=== PATIENT | female | born 2000 | race Caucasian/White ===

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

== ENCOUNTER 2019-07-27 03:16 | Emergency (ER) | payer OTHER ==
--- NOTE | 2019-07-27 04:03 | PDOC ---
History of Present Illness - General Stated Complaint: TINGLING LEGS AND HANDS Time Seen by Provider: 07/27/19 04:01 - History of Present Illness Initial Comments: 07/27/19 04:02 HPI: 18 y/o F with hx of BL knee surgery and migraines presenting with tingling in hands and feet since 11pm. Feet tingling self resolved. She gets these symptoms occasionally but only lasts 10min; today lasted longer than ever. She reports dropping things from her hands since the tingling started. She reprots a headache this morning that resolved after medications and has not recurred. Denied fever, chills, neck pain, chest pain, SOB, abd pain, n/v, change in vision, syncope. Of note, she reports concern for kidney failure due to all her meds causing tingling. PMHx: as noted above ROS: as noted SHx: Denies tobacco use; no alcohol use; no rec drugs Allergies: NKDA ROS: GENERAL/CONSTITUTIONAL: No fever or chills HEAD, EYES, EARS, NOSE AND THROAT: No change in vision. No ear pain or discharge. No sore throat. CARDIOVASCULAR: No chest pain or shortness of breath RESPIRATORY: No cough, wheezing, or hemoptysis. GASTROINTESTINAL: No nausea, vomiting, diarrhea or constipation. GENITOURINARY: No dysuria, frequency, or change in urination. MUSCULOSKELETAL: No joint or muscle swelling or pain. No neck or back pain. SKIN: No rash NEUROLOGIC: No headache, vertigo, loss of consciousness; +sensation changes. ENDOCRINE: No increased thirst. No abnormal weight change HEMATOLOGIC/LYMPHATIC: No anemia, easy bleeding, or history of blood clots. ALLERGIC/IMMUNOLOGIC: No hives or skin allergy. PE: GENERAL: Awake, alert, and fully oriented, no acute distress HEAD: No signs of trauma, normocephalic, atraumatic EYES: EOMI, sclera anicteric, conjunctiva clear ENT: Auricles normal inspection, hearing grossly normal, nares patent, oropharynx clear without exudates. Moist mucosa NECK: Normal ROM, no lymphadenopathy LUNGS: No increased work of breathing, symmetrical chest rise, clear to auscultation bilaterally, no wheezes, crackles or rhonchi HEART: Regular rate and rhythm, normal S1 and S2, no murmur, peripheral pulses 2 + and equal bilaterally. ABDOMEN: Soft, nondistended, nontender, normoactive bowel sounds. No guarding, no rebound. No masses. No CVAT MUSCULOSKELETAL: Normal inspection, FROM NEUROLOGICAL: Cranial nerves II through XII grossly intact. Normal speech, normal gait, no focal sensorimotor deficits SKIN: Warm, Dry, normal turgor, no rashes or lesions noted Past History - Past Medical History Allergies/Adverse Reactions: Allergies Allergy/AdvReac Type Severity Reaction Status Date / Time No Known Allergies Allergy Verified 02/20/18 08:12 Home Medications: Ambulatory Orders Acetaminophen [Tylenol] 650 mg PO QID PRN 02/20/18 Cyclobenzaprine HCl [Flexeril -] 10 mg PO TID PRN #21 tablet 02/20/18 Ibuprofen 400 mg PO TID PRN #21 tablet 02/20/18 COPD: No - Immunization History Immunization Up to Date: Yes - Psycho Social/Smoking Cessation Hx Smoking History: Never smoked Have you smoked in the past 12 months: No Hx Alcohol Use: No Drug/Substance Use Hx: No Substance Use Type: None ED Treatment Course - LABORATORY CBC & Chemistry Diagram: 07/27/19 05:30 07/27/19 05:30 Medical Decision Making - Medical Decision Making 07/27/19 05:19 18 y/o F with hx of BL knee surgery and migraines presenting with tingling in hands and feet since 11pm; feet tingling self resolved. VSS, AF. PE unremarkable. Patient would like kidneys checked -cbc, cmp, preg 07/27/19 06:23 labs wnl preg negative discussed with patient results and answered all questions; recommending followup with pcp; no other concerns at this time Discharge - Discharge Information Problems reviewed: Yes Clinical Impression/Diagnosis: Tingling Condition: Stable Disposition: HOME - Follow up/Referral Referrals: Cuate Savage MD [Primary Care Provider] - - Patient Discharge Instructions Patient Printed Discharge Instructions: DI for Numbness/tingling Additional Instructions: Additional Instructions: Please return to the emergency department with any new or worsening symptoms or concerns. Please follow up with your primary care physician within 1 week for further evaluation - Post Discharge Activity
[2019-07-27 04:07] VITALS: BP 128/95; PULSE 85; TEMP 97.9; BMI 23.8
--- NOTE | 2019-07-27 04:14 | PDOC ---
Attending Attestation - Resident Resident Name: Sabino Hernandez - ED Attending Attestation I have performed the following: I have examined & evaluated the patient, The case was reviewed & discussed with the resident, I agree w/resident's findings & plan - HPI HPI: 07/31/19 21:46 see resident hpi - Physicial Exam PE: 07/31/19 21:46 agree with resident exam - Medical Decision Making 07/31/19 21:47 18-year-old female with history of frequent headaches, accompanied by tingling to the hands and feet Headache now resolved Patient concerned about her kidney function She was given results from today that her creatinine was within normal limits She is neuro intact and feeling much better Will DC with recommended outpatient follow-up
[2019-07-27 05:42] LABS: BASO % 1.2 % (0-2.0); EOS % 1.6 % (0-4.5); HEMATOCRIT 40.4 % (32.4-45.2); HEMOGLOBIN 13.9 GM/dL (10.7-15.3); LYMPH % 37.9 % (8-40); MCH 29.6 pg (25.7-33.7); MCHC 34.3 g/dl (32.0-36.0); MEAN CELL VOLUME 86.2 fl (80-96); MEAN PLT VOLUME 6.5 fl (7.5-11.1); MONO % 7.8 % (3.8-10.2); NEUT % 51.5 % (42.8-82.8); PLATELET COUNT 380 K/MM3 (134-434); RBC 4.69 M/mm3 (3.60-5.2); RDW 13.3 % (11.6-15.6); WHITE BLOOD COUNT 9.4 K/mm3 (4.0-10.0)
[2019-07-27 06:18] LABS: ALBUMIN 4.1 g/dl (3.4-5.0); BILIRUBIN,TOTAL 0.5 mg/dL (0.2-1); BLOOD UREA NITROGEN 11.2 mg/dL (7-18); CALCIUM 9.3 mg/dL (8.5-10.1); CREATININE 0.7 mg/dL (0.55-1.3); POTASSIUM 3.7 mmol/L (3.5-5.1); TOT PROT 8.4 g/dl (6.4-8.2)
== END 2019-07-27 06:38 | disposition home or self-care (01) ==
LOC: JER 03:16
DX: R20.2 Paresthesia of skin (principal); Z86.69 Personal history of other diseases of the nervous system and sense organs; Z98.890 Other specified postprocedural states
CPT/HCPCS: 36415; 80053; 84703; 85025; 99283-25

== ENCOUNTER 2020-11-01 09:14 | Emergency (ER) | payer OTHER ==
[2020-11-01 09:18] VITALS: TEMP 98.1; BMI 26.5
[2020-11-01 10:30] VITALS: BP 127/67; PULSE 68
[2020-11-02 09:07] LABS: SARS-CoV-2 NAA Not Detected (Not Detected)
== END 2020-11-01 10:34 | disposition home or self-care (01) ==
LOC: FER 09:14
DX: K11.7 Disturbances of salivary secretion (principal)
CPT/HCPCS: 84703; 87880; 99284-25; C9803; U0003; U0005

== ENCOUNTER 2022-01-13 09:34 | Emergency (ER) | payer OTHER ==
[2022-01-13] MEDS ORDERED: ACETAMINOPHEN 325 MG TABLET (FP) PO ONE (09:53)
[2022-01-13 09:59] VITALS: BP 138/77; PULSE 92; TEMP 97.8; BMI 32.0
[2022-01-13] MEDS ORDERED: ACETAMINOPHEN 325 MG TABLET (FP) ONE (10:02)
== END 2022-01-13 11:55 | disposition home or self-care (01) ==
LOC: FER 09:34
DX: M25.571 Pain in right ankle and joints of right foot (principal)
CPT/HCPCS: 73110-TC-RT-FY; 73130-TC-RT-FY; 73610-TC-LT-FY; 73630-TC-LT; 99284-25

== ENCOUNTER 2022-01-26 09:45 | Emergency (ER) | payer OTHER ==
[2022-01-26 10:00] VITALS: BP 120/72; PULSE 77; TEMP 98.1; BMI 32.0
[2022-01-26] MEDS ORDERED: ACETAMINOPHEN 325 MG TABLET (FP) PO ONE (10:01)
[2022-01-26] MEDS ORDERED: ACETAMINOPHEN 325 MG TABLET (FP) ONE (10:06)
== END 2022-01-26 10:10 | disposition home or self-care (01) ==
LOC: FER 09:45
DX: S43.401A Unspecified sprain of right shoulder joint, initial encounter (principal); W01.0XXA Fall on same level from slipping, tripping and stumbling without subsequent striking against object, initial encounter; Y93.11 Activity, swimming
CPT/HCPCS: 73030-TC-RT-FY; 99283-25